=== PATIENT | male | born 1975 | race Caucasian/White ===

== ENCOUNTER → 2016-04-06 | Outpatient (CLI) | payer OTHER ==
--- NOTE | 2016-04-08 10:58 | POLYSOMNOGRAPH REPORT ---
CLINICAL DATA: A 40-year-old male with BMI of 37.[address] Anmol Juarez for evaluation of snoring, fatigue, and possible sleep apnea. On the evening of 04/06/2016, a home sleep apnea test was performed using a InfoAssure type 3 monitor. RECORDING RESULTS: Total recording time was 10 hours. The patient's monitoring time and estimated sleep time was 5.5 hours. RESPIRATORY DATA: Mild sleep apnea was documented. The LINDA was 14.1. There were 14 obstructive apneic episodes and 63 hypopneic episodes recorded. The maximum respiratory event recorded was 44 seconds. OXIMETRY DATA: Mild nocturnal hypoxemia was seen. Oxygen galileo was 81%. Mean saturation was 93%. Time below 89% was 11 minutes. HEART RATE DATA: Heart rates ranged from 46-61 beats per minute. SNORING DATA: Snoring was recorded throughout the night. IMPRESSION: Mild obstructive sleep apnea/hypopnea with an LINDA of 14.1 and oxygen galileo of 81%. RECOMMENDATIONS: The patient may benefit from weight loss, positional therapy, use of an oral appliance, or a repeat sleep study with CPAP. Clinical correlation is needed. EVELIOD
== END | disposition home or self-care (01) ==
LOC: C.NEUR 07:58
PROVIDERS: ATTEND Internal Medicine
DX: R06.83 Snoring (principal); G47.33 Obstructive sleep apnea (adult) (pediatric)

== ENCOUNTER → 2016-06-04 | Outpatient (CLI) | payer OTHER ==
--- NOTE | 2016-06-05 07:51 | PAP/PSG TECHNICIAN REPORT ---
[facility] Gear Tooth Lapping Machine Operator Polysomnogram Report Study name: None Report date: 06/05/2016 Study date: 06/04/2016 Referring Physician: DR. Harjit MCINTYRE Name: DELLA MCCRAY Interpreting Physician: Marcus Santoro M.D. Date of : 1975 Gear Tooth Lapping Machine Operator: Jennifer Thakur, PSGT. Sex: Male Age: 40 StudyType: PSG Weight: 235 lbs Height: 40 years, Height 5' 10" Neck Circum:17 inches BMI: 33.72 Medications: NO MEDICATIONS PROVIDED. Patient History 40 YR. OLD MALE IN ROOM 5, HERE FOR A TITRATION SLEEP STUDY.PT. HAD A HST W/ AN AHI OF 14.1. NECK = 17 INCHES Parameters Monitored NPSG: E1-M2, E2-M1, Fp1-M2, Fp2-M1, F3-M2, F4-M2, F4-M1, C3-M2, C4-M2, C4-M1, O1-M2, O2-M2, O2-M1, T3-M2, T4-M1, P3-M2, P4-M1, CHIN1, CHIN2, HR, EKG, Legs, PFLOW, SNOR, FLOW, CFLOW, Tidal Volume, THOR, ABDO, SpO2, PLTH, CPRESS, ETCO2 Wave, ETCO2, pH Sleep Architecture Sleep Stages Time at Lights Off 9:45:43 PM STAGES Time (min.) TST (%) Time at Lights On 5:15:43 AM Wake 23.0 -- Total Recording Time (TRT) 451.50 min. N1 5.0 1 Total Sleep Period (TSP) 434.5 min. N2 287.0 67 Total Sleep Time (TST) 427.0min. N3 11.0 3 Awake Time 23.0 min. REM 124.0 29 Wake after Sleep Onset 7.5 min. Sleep Efficiency (SE) 95 % Sleep Onset Latency (LIZ) 15.5 min. Number of Stage 1 Shifts None Awakenings 2 Stage Changes 16 Number of REM periods 4 REM 124.0 29 REM Latency 70.5 min. NREM 303.0 71 Body Position Analysis Supine Right Left Side Prone Vertical Total Sleep Time (min.) 252.8 46.1 145.7 191.85 0.0 0.1 Total Sleep Time (%) 55% 11% 34% 45 0% N/A% Total Sleep Time REM (min.) 91.0 0.0 33.0 None 0.0 0.0 Total Sleep Time NREM (min.) 144.2 46.1 112.7 None 0.0 0.0 Intermittent Wake (min.) 17.7 0.0 5.2 None 0.0 0.1 Total Sleep Period (%) 56% None None None None None Arousals Myoclonus (PLM) * Events Count Index Events Count Index Spontaneous 36 5 Events Awake (PLMW) 0 0.0 Respiratory 1 0.1 Events Asleep w/ Arousal (PLMA) 26 3.7 PLM 25 4 Events Asleep w/o Arousal (PLMS) 120 16.9 Snoring 6 1 Total Asleep 146 20.5 Total 68 10 Total 146 19 Respiratory Analysis * CA OA MA CH H RERA Total Count 0 0 0 0 21 3 21 Index 0.0 0.0 0.0 0 3.0 0 3.4 Mean Duration 0.0 0.0 0.0 0.00 18.6 13.7 18.0 Longest Duration 0.0 0.0 0.0 0.00 0.0 20.0 29.4 Respiratory Event Summary Total Supine ~Supine Right Left Prone REM NREM Apneas Count 0 0 0 0 0 N/A 0 0 Index 0.0 0 0 0.0 0.0 N/A 0 0 Hypopneas (4% Desat) Count 21 20 1 1 0 N/A 17 4 Index 3.0 5.1 0 1.3 0.0 N/A 8.2 0.8 Apneas & All Hypopneas Count 21 20 1 1 0 N/A 17 4 Index 3.0 5 0 1 0 N/A 8.2 0.8 Respiratory Events (Senior Devops Engineer+All Hyp+RERA) Count 21 21 3 1 2 N/A 17 4 Index 3.4 5 1 1.3 0.8 N/A 9.2 1.0 Respiratory Related Arousal Count 1 21 0 0 0 N/A 0 1 Index 0.1 0 0 0 0 N/A 0 0 Snoring Analysis Supine Right Left Prone REM NREM Total Snore duration 8.7 min Snores count 217 34 121 N/A 67 305 372 Snore mean duration 1.4 Sec Snores index 55 44 50 N/A 32.4 60.4 52.3 TST with snoring (%) 2.0% Desaturation Event Summary: Minimum %SpO2 Event Count Mean/Min/Max Duration(sec.) Desaturation Index % Time In Bed > 90 41 31.1 / 4.5 / 58.8 6.9 82.3 86 - 90 10 15.8 / 4.0 / 29.5 8.0 17.5 81 - 85 0 N/A 0.0 0.3 76 - 80 0 N/A 0.0 0.0 71 - 75 0 N/A 0.0 0.0 66 - 70 0 N/A 0.0 0.0 61 - 65 0 N/A 0.0 0.0 56 - 60 0 N/A 0.0 0.0 51 - 55 0 N/A 0.0 0.0 < 50 0 N/A 0.0 0.0 Total REM NREM Awake <50% 0.0 min. 0.0 min. 0.0 min. 0.0 min. 51 - 60% 0.0 min. 0.0 min. 0.0 min. 0.0 min. 61 - 70% 0.0 min. 0.0 min. 0.0 min. 0.0 min. 71 - 80% 0.0 min. 0.0 min. 0.0 min. 0.0 min. 81 - 90% 76.6 min. 20.3 min. 52.3 min. 4.0 min. 91 - 100% 355.3 min. 100.5 min. 236.6 min. 18.2 min. Average 92 92 91 92 Minimum SpO2 79 81 79 85 Desaturation Event Index 6.4 14.5 3.6 0.0 # Desat. Events below 89% 23 13 10 0 Time(%) with Saturation below 89% 1.8 1.1 0.6 0.0 Time(min.) with Saturation below 89% 7.7 4.9 2.8 0.1 Heart Rate Analysis End Tidal CO2 Analysis Min (bpm) Max (bpm) Average (bpm) TSP (mins) % of TSP Awake 50 83 59 Above 55 mmHg 0.0 0.0 NREM 41 188 57 50-55 mmHg 0.0 0.0 REM 41 188 57 45-50 mmHg 427.0 100.0 Overall 41 188 57 40-45 mmHg 0.0 0.0 35-40 mmHg 0.0 0.0 30-35 mmHg 0.0 0.0 Average ETCO2 0.0 Supplemental O2 Values Minimum O2 level: None Value Start Time End Time Gear Tooth Lapping Machine Operator Comments PAP Study: Mr. Mccray slept in the right, left, and supine positions. No cardiac arrhythmia or PLM's noted. No bruxism noted. CPAP was initiated at +4 CMH2O and up-titrated to an optimal level of +9 CMH2O, which nearly eliminated all respiratory events and snoring. A Medium Res Med F10 mask was used during titration Mr. Mccray awoke to use the restroom zero times during the night. Mr. Mccray stated, I did not sleep as well as I do when I am in my own bed. The final report will be interpreted and signed by a sleep physician. The completed physician report will then be placed in the patient medical record. Therapy Event: Therapy (cm H20) 0 4 5 6 7 8 9 Total Time at Pressure (min.) 0.3 195.7 23.8 22.7 90.4 89.0 28.1 TST at Pressure (min.) 0.0 180.5 23.8 22.7 87.9 84.0 28.1 # Periods 1 1 1 1 1 1 1 Sleep Onset (min.) N/A 15.2 0.0 0.0 0.0 0.0 0.0 REM Onset (min.) N/A 85.7 8.5 0.0 76.0 0.0 0.0 Sleep Efficiency % 0 92 100 100 97 94 100 Wakefulness (%) 100.0 7.8 0.0 0.0 2.8 5.6 0.0 Wakefulness (min.) 0.3 15.2 0.0 0.0 2.5 5.0 0.0 NREM 1 (%) 0.0 0.8 0.0 0.0 2.8 1.1 0.0 NREM 1 (min.) 0.0 1.5 0.0 0.0 2.5 1.0 0.0 NREM 2 (%) 0.0 69.0 35.8 52.7 78.6 68.0 0.0 NREM 2 (min.) 0.0 135.0 8.5 12.0 71.0 60.5 0.0 NREM 3 (%) 0.0 5.6 0.0 0.0 0.0 0.0 0.0 NREM 3 (min.) 0.0 11.0 0.0 0.0 0.0 0.0 0.0 REM (%) 0.0 16.9 64.2 47.3 15.9 25.3 100.0 REM (min.) 0.0 33.0 15.2 10.8 14.4 22.5 28.1 # Arousals N/A 21 6 5 19 11 6 Arousal Index N/A 7.0 15.2 13.2 13.0 7.9 12.8 # Snore N/A 213 39 21 77 13 9 Snore Index N/A 70.8 98.5 55.4 52.6 9.3 19.2 AHI N/A 0.0 17.7 2.6 1.4 7.1 2.1 AHI Supine N/A 0.0 17.7 3.1 1.3 7.1 2.1 AHI Non-Supine N/A 0.0 N/A 0.0 1.4 N/A N/A NREM AHI N/A 0.0 0.0 0.0 0.8 2.9 N/A REM AHI N/A 0.0 27.5 5.6 4.2 18.7 2.1 RDI N/A 0.7 17.7 2.6 2.0 7.1 2.1 # Obstructive N/A 0 0 0 0 0 0 # Central Ap N/A 0 0 0 0 0 0 # Mixed N/A 0 0 0 0 0 0 # Hypopneas N/A 0 7 1 2 10 1 RERAS N/A 2 0 0 1 0 0 Total Respiratory Events N/A 2 7 1 3 10 1 Time Below SpO2 89.00% (min.) 0.0 0.7 1.8 1.1 0.3 3.0 0.7 Mean NREM SpO2 (%) N/A 92 90 91 91 92 N/A Mean REM SpO2 (%) N/A 92 91 91 92 93 93 Mean Sleep SpO2 (%) N/A 92 91 91 91 92 93 Min NREM SpO2 (%) N/A 86 86 89 79 86 N/A Min REM SpO2 (%) N/A 84 83 83 88 82 81 Position Supine (min.) 0.0 34.8 23.8 19.4 45.1 84.0 28.1 Position Non-supine (min.) 0.0 145.7 0.0 3.4 42.7 0.0 0.0 LM Index Sleep N/A 13.3 30.3 29.0 30.0 17.1 32.0 LM Index NREM N/A 9.4 28.2 15.0 31.0 16.6 N/A LM Index REM N/A 30.9 31.5 44.6 25.1 18.7 32.0 Mean Heart Rate (bpm) N/A 58 59 57 57 55 54 Min Heart Rate (bpm) N/A 41 52 51 41 45 46
--- NOTE | 2016-06-08 00:12 | POLYSOMNOGRAPH REPORT ---
CLINICAL DATA: A 40-year-old male with BMI of 33.7, referred by Dr. Anmol Juarez for a CPAP titration study. He had a home sleep test which showed mild sleep apnea with an AHI of 14.1. SLEEP ARCHITECTURE: Total sleep period was 434.5 minutes. Total sleep time was 427 minutes divided between 303 minutes of non-REM sleep and 124 minutes of REM sleep. Sleep onset latency was 15.5 minutes. REM latency was 78.5 minutes. Sleep efficiency was 95%. Wake after sleep onset was 7.5 minutes. Sleep consisted of stage N1 1%, N2 67%, N3 3%, REM 29%. AROUSAL DATA: 68 arousals recorded for an index of 10 per hour. PLM DATA: 146 limb movements during sleep were noted for an index of 20.5 per hour with arousal index of 3.7 per hour. RESPIRATORY DATA: The AHI was 3. There were 21 hypopneic episodes. The mean duration of hypopnea was 18.6 seconds. OXIMETRY DATA: Nocturnal hypoxemia was seen. Oxygen galileo was 79% during non-REM sleep. Mean saturation was 92%. EKG: Heart rates ranged from 41-188 beats per minute. No arrhythmias were noted. BACK CLOSER'S COMMENTS: The patient slept in the right, left, and supine positions. The patient used a ResMed medium F10 mask. He was titrated up to 9 cm of water pressure. At his final pressure setting, the patient slept for 28.1 minutes with an AHI of 3.1. IMPRESSION: Moderate sleep apnea/hypopnea corrected with CPAP 9 cm of water pressure utilizing a medium ResMed F10 mask. RECOMMENDATIONS: The patient should be started on the above-noted treatment regimen and seen back in followup within 90 days to document efficacy and compliance. [facility]ITALJoy
== END | disposition home or self-care (01) ==
LOC: C.NEUR 20:00
PROVIDERS: ATTEND Internal Medicine
DX: G47.30 Sleep apnea, unspecified (principal)

== ENCOUNTER → 2016-08-29 | Outpatient (CLI) | payer OTHER ==
[2016-08-29 11:09] LABS: ALT/SGPT 49 U/L (12-78); AST/SGOT 21 U/L (15-37); BLOOD UREA NITROGEN 16 mg/dl (7-18); BUN/CREATININE RATIO 20.2 (10-20); CARBON DIOXIDE 30 mmol/L (21-32); CHLORIDE 104 mmol/L (98-107); CHOLESTEROL 187 mg/dl (0-200); CREATININE 0.78 mg/dl (0.60-1.40); GLUCOSE 87 mg/dl (70-99); POTASSIUM 4.4 mmol/L (3.5-5.1); SODIUM 140 mmol/L (136-145)
[2016-08-29 11:12] LABS: ALB/GLOB RATIO 1.4 (0.9-2); ALKALINE PHOSPHATASE 65 U/L (45-117); CHOLESTEROL/HDL RATIO 4.5; HDL CHOLESTEROL 42 mg/dl; LDL CHOLESTEROL CALCULATED 127 mg/dl; TRIGLYCERIDES 91 mg/dl (0-150); VERY LOW DENSITY LIPOPROT CALC 18 mg/dl
== END | disposition home or self-care (01) ==
LOC: C.LABBC 08:20
PROVIDERS: ATTEND Internal Medicine
DX: E78.4 Other hyperlipidemia (principal)

== ENCOUNTER → 2016-12-18 | Outpatient (CLI) | payer OTHER ==
[~2016-12-18] VITALS: Ht 177.8 cm; Wt 114.2 kg
[2016-12-18 15:05] VITALS: BP 128/84; PULSE 68; Ht 177.8 cm; Wt 114.2 kg
== END | disposition home or self-care (01) ==
LOC: C.NEUR 14:30
PROVIDERS: ATTEND Internal Medicine Pulmonary Disease
DX: G47.30 Sleep apnea, unspecified (principal)

== ENCOUNTER → 2017-03-02 | Outpatient (CLI) | payer OTHER ==
[2017-03-02 11:03] LABS: BASO % 0.4 %; BASO ABS # 0.02 K/uL (0-0.2); COMPLETE YES; EOS % 3.4 %; HEMATOCRIT 43.6 % (42-52); LYMPH % 28.8 %; LYMPH ABS # 1.54 K/uL (1.2-3.4); MEAN CELL VOLUME 81.3 fL (80-100); MEAN CORPUSCULAR HEMOGLOBIN 27.4 pg (25-34); MEAN CORPUSCULAR HGB CONC 33.7 g/dl (32-36); MEAN PLATELET VOLUME 9.7 fL (7.4-10.4); MONO % 8.2 %; NEUT % 59.2 %; PLATELET COUNT 265 K/uL (130-400); RED BLOOD COUNT 5.36 M/uL (4.7-6.1); WHITE BLOOD COUNT 5.35 K/uL (4.8-10.8)
[2017-03-02 11:12] LABS: ALT/SGPT 52 U/L (12-78); AST/SGOT 20 U/L (15-37); BLOOD UREA NITROGEN 16 mg/dl (7-18); BUN/CREATININE RATIO 19.8 (10-20); CALCIUM 8.8 mg/dl (8.5-10.1); CARBON DIOXIDE 30 mmol/L (21-32); CHLORIDE 101 mmol/L (98-107); CREATININE 0.83 mg/dl (0.60-1.40); GLUCOSE 86 mg/dl (70-99); POTASSIUM 3.9 mmol/L (3.5-5.1); SODIUM 134 mmol/L (136-145)
[2017-03-02 11:25] LABS: ALB/GLOB RATIO 1.3 (0.9-2); ALKALINE PHOSPHATASE 65 U/L (45-117); CHOLESTEROL 268 mg/dl (0-200); CHOLESTEROL/HDL RATIO 5.6; HDL CHOLESTEROL 48 mg/dl; LDL CHOLESTEROL CALCULATED 207 mg/dl; TRIGLYCERIDES 66 mg/dl (0-150); VERY LOW DENSITY LIPOPROT CALC 13 mg/dl
[2017-03-02 12:59] LABS: ESTIMATED AVERAGE GLUCOSE 117 mg/dl; HA1C FLAG Normal (Normal)
== END | disposition home or self-care (01) ==
LOC: C.LABBC 08:12
PROVIDERS: ATTEND Internal Medicine
DX: R03.0 Elevated blood-pressure reading, without diagnosis of hypertension (principal); R73.09 Other abnormal glucose; G47.30 Sleep apnea, unspecified; R00.2 Palpitations; R53.82 Chronic fatigue, unspecified; E78.4 Other hyperlipidemia

== ENCOUNTER 2017-06-17 22:21 | Emergency (ER) | payer OTHER ==
[~2017-06-17] VITALS: Ht 177.8 cm; Wt 116.5 kg
[2017-06-17 22:24] VITALS: TEMP 36.4; Ht 177.8 cm; Wt 116.5 kg
[2017-06-17 22:35] VITALS: O2SAT 97
[2017-06-17 23:26] LABS: BASO % 0.3 %; BASO ABS # 0.02 K/uL (0-0.2); EOS % 6.1 %; EOS ABS # 0.35 K/uL (0-0.5); HEMATOCRIT 40.7 % (42-52); HEMOGLOBIN 14.3 g/dL (14.0-18.0); LYMPH % 40.7 %; LYMPH ABS # 2.33 K/uL (1.2-3.4); MEAN CELL VOLUME 79.6 fL (80-100); MEAN CORPUSCULAR HGB CONC 35.1 g/dl (32-36); MEAN PLATELET VOLUME 9.2 fL (7.4-10.4); MONO % 9.8 %; MONO ABS # 0.56 K/uL (0.11-0.59); NEUT % 43.1 %; NEUT ABS # 2.47 K/uL (1.4-6.5); PLATELET COUNT 237 K/uL (130-400); RED CELL DISTRIBUTION WIDTH CV 12.8 % (11.5-14.5); WHITE BLOOD COUNT 5.73 K/uL (4.8-10.8)
[2017-06-18] LABS: CALCIUM 8.7 mg/dl (8.5-10.1); CREATININE 0.88 mg/dl (0.60-1.40); TOTAL PROTEIN 7.4 gm/dl (6.4-8.2)
[2017-06-18 00:16] LABS: POTASSIUM 3.9 mmol/L (3.5-5.1)
[2017-06-18 00:34] VITALS: BP 137/95; PULSE 67; O2SAT 97
--- NOTE | 2017-06-18 05:03 | EMERGENCY ROOM VISIT NOTE ---
History First contact with patient: 22:39 Chief Complaint: PALPITATIONS Stated Complaint: HEART PALIPATIONS/ HIGH BLOOD PRESSURE Nursing Triage Summary: Pt denies chest pain. Pt has had palpitations on and off for a few weeks. Pt has appointment tomorrow for symptoms. Today pt was having palpitations and high blood pressure. History of Present Illness The patient is a 41 year old male who presents to the Emergency Room with complaints of intermittent palpitations for the past few weeks who has an appointment tomorrow with the family care doctor. Blood pressure was 160/120. Patient had A. fib in the past. He has sleep apnea. Patient states his sleep has been suboptimal. Patient denies excessive caffeine, alcohol or tobacco use. He does use a fair amount of salt. Patient denies chest pain, dyspnea, fever, chills, lightheadedness, dizziness, abdominal pain, flulike illness, leg pain or swelling. Patient denies supplement use or any other [id number] medicines. Review of Systems An 10 system review of systems was completed with positives and pertinent negatives listed in the HPI. Past Medical/Surgical History Hyperlipidemia, paroxysmal atrial fibrillation, sleep apnea Social History Smoking Status: Never Smoker Drug Use: none Marital Status: Housing Status: lives with family Occupation Status: employed Physical Exam Vital Signs Date Time Temp Pulse Resp B/P (MAP) Pulse Ox O2 Delivery O2 Flow Rate FiO2 06/18/17 00:34 67 18 137/95 97 06/17/17 23:31 57 18 127/82 96 Room Air 06/17/17 23:01 60 16 127/88 96 Room Air 06/17/17 22:38 62 06/17/17 22:35 97 Room Air 06/17/17 22:24 36.4 65 18 164/104 96 Room Air Physical Exam VITALS: Vitals are noted on the nurse's note and reviewed by myself. Vital signs hypertensive. GENERAL: Pleasant male, in no acute distress, nondiaphoretic, well-developed well-nourished. SKIN: The skin was without rashes, erythema, edema, or bruising. There is no tenting of the skin. Capillary reflex less than 2 seconds. HEAD: Normocephalic atraumatic. EARS: External auditory canals clear, tympanic membranes pearly fung without erythema or effusion bilaterally. EYES: Pupils equal round and reactive to light and accommodation. Conjunctivae without injection, sclerae without icterus. Extraocular movements intact. NOSE: Patent, turbinates without inflammation or discharge. MOUTH: Mucous membranes moist. Pharynx without erythema or exudate. Uvula midline. Airway patent. Tongue does not deviate. NECK: Supple without nuchal rigidity. No lymphadenopathy. No thyromegaly. Cervical spine is nontender. No JVD. HEART: Regular rate and rhythm without murmurs gallops or rubs. LUNGS: Clear to auscultation bilaterally without wheezes, rales or rhonchi. No retractions or accessory muscle use. ABDOMEN: Positive bowel sounds x 4. Normal tympanic percussion. Soft, nontender, without masses or organomegaly. Oakes sign negative. No guarding or rebound tenderness. No CVA tenderness MUSCULOSKELETAL: No muscle atrophy, erythema, or edema noted. NEURO: Patient was alert and oriented to person place and time. Normal sensation to light and sharp touch. No focal neurological deficits. Medical Decision & Procedures Laboratory Results 06/17/17 22:35 Red Blood Count 5.11, Mean Corpuscular Volume 79.6, Mean Corpuscular Hemoglobin 28.0, Mean Corpuscular Hemoglobin Concent 35.1, Mean Platelet Volume 9.2, Neutrophils (%) (Auto) 43.1, Lymphocytes (%) (Auto) 40.7, Monocytes (%) (Auto) 9.8, Eosinophils (%) (Auto) 6.1, Basophils (%) (Auto) 0.3, Neutrophils # (Auto) 2.47, Lymphocytes # (Auto) 2.33, Monocytes # (Auto) 0.56, Eosinophils # (Auto) 0.35, Basophils # (Auto) 0.02 06/17/17 22:35 Test 06/17/17 22:35 White Blood Count 5.73 K/uL (4.8-10.8) Red Blood Count 5.11 M/uL (4.7-6.1) Hemoglobin 14.3 g/dL (14.0-18.0) Hematocrit 40.7 % (42-52) Mean Corpuscular Volume 79.6 fL (80-100) Mean Corpuscular Hemoglobin 28.0 pg (25-34) Mean Corpuscular Hemoglobin Concent 35.1 g/dl (32-36) Platelet Count 237 K/uL (130-400) Mean Platelet Volume 9.2 fL (7.4-10.4) Neutrophils (%) (Auto) 43.1 % Lymphocytes (%) (Auto) 40.7 % Monocytes (%) (Auto) 9.8 % Eosinophils (%) (Auto) 6.1 % Basophils (%) (Auto) 0.3 % Neutrophils # (Auto) 2.47 K/uL (1.4-6.5) Lymphocytes # (Auto) 2.33 K/uL (1.2-3.4) Monocytes # (Auto) 0.56 K/uL (0.11-0.59) Eosinophils # (Auto) 0.35 K/uL (0-0.5) Basophils # (Auto) 0.02 K/uL (0-0.2) RDW Standard Deviation 37.0 fL (36.4-46.3) RDW Coefficient of Variation 12.8 % (11.5-14.5) Immature Granulocyte % (Auto) 0.0 % Immature Granulocyte # (Auto) 0.00 K/uL (0.00-0.02) Anion Gap 9.0 mmol/L (3-11) Est Creatinine Clear Calc Drug Dose 141.3 ml/min Estimated GFR () 123.7 Estimated GFR (Non- 106.7 BUN/Creatinine Ratio 20.6 (10-20) Calcium Level 8.7 mg/dl (8.5-10.1) Magnesium Level 2.0 mg/dl (1.8-2.4) Total Bilirubin 1.5 mg/dl (0.2-1) Direct Bilirubin mg/dl (0-0.2) Aspartate Amino Transf (AST/SGOT) 27 U/L (15-37) Alanine Aminotransferase (ALT/SGPT) 45 U/L (12-78) Alkaline Phosphatase 65 U/L (45-117) Total Protein 7.4 gm/dl (6.4-8.2) Albumin 4.0 gm/dl (3.4-5.0) Thyroid Stimulating Hormone (TSH) 1.900 uIu/ml (0.300-4.500) Chemistry Specimen Hemolysis ED Course Prior records/ancillary studies reviewed. Triage Nursing notes reviewed. Additional history obtained from family The patient's history was concerning for palpitations. Differential diagnosis: Etiologies such as premature contractions, electrolyte abnormality, cardiac dysrhythmia, thyroid dysfunction, pulmonary embolism, infection, gastrointestinal, as well as others were entertained. Physical examination: Benign as above. ER treatment provided: Patient was observed On reassessment the patient felt better. Diagnostic interpretation by me: Cardiac monitoring revealed occasional PVC. The electrocardiogram was negative for pathologic change. Normal sinus, normal intervals, no acute ST-T wave changes. Impression normal sinus rhythm interpreted by myself The labs revealed euthyroid, stable H&H This appears to be consistent with palpitations most likely from PVCs. Patient was neurovascularly and neurologically intact. He is well-appearing. He has an appointment tomorrow morning with his family care doctor. He is advised to keep this. He is advised to get an outpatient Holter monitor for further evaluation workup for his ongoing palpitations. Is advised to return to the ER immediately for prolonged palpitations, chest pain, difficulty breathing, worsening sinus symptoms or as needed. Patient had no chest pain or dyspnea. His only complaint was occasional palpitations. By the evaluation outlined above emergent etiologies such as electrolyte abnormality, cardiac dysrhythmia, thyroid dysfunction, pulmonary embolism, infection, as well as others were deemed relatively unlikely. The pt informed about the findings as listed above. All questions were answered and pleased with the treatment. Return instructions were outlined and the patient was discharged in stable condition. Referral: The patient was referred back to their primary care physician for follow-up tomorrow as scheduled for a recheck of the current condition The chart was completed utilizing [employer] Speech voice recognition software. Grammatical errors, random word insertions, pronoun errors, and incomplete sentences are an occassional consequence of this system due to software limitations, ambient noise, and hardware issues. Any formal questions or concerns about the content, text, or information contained within the body of this dictation should be directly addressed to the physician medical assistant dermatology for clarification. Medical Decision As above Medication Reconcilliation Current Medication List: was personally reviewed by me Blood Pressure Screening Patient's blood pressure: Elevated blood pressure Blood pressure disposition: Elevated BP felt to be situational Impression Primary Impression: Palpitations Departure Information Dispostion Home / Self-Care Condition GOOD Forms WORK / SCHOOL INSTRUCTIONS, HOME CARE DOCUMENTATION FORM, Days off work : 1 Work Instructions, IMPORTANT VISIT INFORMATION Patient Instructions Heart Palpitations, My [employer] Additional Instructions Recommend outpatient Holter monitor. Decrease caffeine, alcohol, tobacco and salt intake. Avoid stimulants near bedtime. Ibuprofen(Motrin, Advil) may be used for fever or pain. Use 600mg every six hours as needed. Take with food. Avoid using more than 2400mg in a 24 hour period. Do not use 2400mg per day for more than three consecutive days without physician direction. Prolonged inappropriate use can lead to stomach upset or ulcers. (AND/OR) Acetaminophen(Tylenol) may be used for fever or pain. Use 1000mg every six hours as needed. Avoid using more than 3000mg in a 24 hour period. Rest and drink plenty of fluids as tolerated. Continue current medications. Avoid strenuous activities and anything that worsens your symptoms. Resume normal activities once your symptoms resolve. Return to the ER immediately for worsening or persistent prolonged palpitations , abdominal pain, vomiting, fevers, chest pains, difficulty breathing, worsening of your condition, or as needed. Follow up with your primary physician in 2-3 days for a recheck of your current condition.
== END 2017-06-18 00:36 | disposition home or self-care (01) ==
LOC: C.EDB 22:22 → C.EDC 06-18 00:36
DX: R00.2 Palpitations (principal); I48.0 Paroxysmal atrial fibrillation; E78.5 Hyperlipidemia, unspecified; G47.30 Sleep apnea, unspecified

== ENCOUNTER → 2017-08-13 | Outpatient (CLI) | payer OTHER ==
[~2017-08-13] VITALS: Ht 175.3 cm; Wt 116.3 kg
[2017-08-13 15:55] VITALS: BP 143/88; PULSE 76; Ht 175.3 cm; Wt 116.3 kg
== END | disposition home or self-care (01) ==
LOC: C.NEUR 15:45
PROVIDERS: ATTEND Internal Medicine Pulmonary Disease
DX: G47.30 Sleep apnea, unspecified (principal); R03.0 Elevated blood-pressure reading, without diagnosis of hypertension